=== PATIENT | male | born 1985 | race Caucasian/White ===

== ENCOUNTER 2016-08-23 09:42 | Emergency (ER) | payer OTHER ==
[~2016-08-23] VITALS: Ht 162.6 cm; Wt 75.0 kg
[~2016-08-23 09:42] MED LIST: BACTDS PO; CEPH-443 PO; CEPH500C PO; IBUP800T25 PO
[2016-08-23 09:51] VITALS: Ht 162.6 cm; Wt 75.0 kg
--- NOTE | 2016-08-23 11:12 | RADRPT ---
PROCEDURE: XR Chest. CLINICAL INDICATION: chest pain, dyspnea TECHNIQUE: Single frontal view of the chest was obtained COMPARISON: None FINDINGS: The heart and mediastinum are within normal limits. The lungs are clear. There is no pleural effusion or pneumothorax. RPTAT: AA IMPRESSION: No acute disease. .Ridge Eid MD, MD Date Time Electronically viewed and signed by .Ridge Eid MD, on 08/23/2016 11:12 .S/
--- NOTE | 2016-08-23 11:38 | ERD ---
ER Documentation Chief Complaint Date/Time DATE: 08/23/16 TIME: 11:35 Chief Complaint SOB SINCE THIS MORNING DENIES CP HPI This is a 22-year-old male who presents to the emergency department stating that he woke up with some difficulty breathing. Patient states that he thought he was having a hard time getting air through his nostrils. Patient states he does smoke cigarettes and smoking a lot of cigarettes last night. States he does have a history of anxiety. Patient states that he felt like he couldn't catch his breath. States he feels better now that he is here in the ER. Denies any fevers or chills, cough, calf pain, recent travel ROS All systems reviewed and are negative except as per history of present illness. Medications Home Meds Active Scripts Sulfamethoxazole-Trimethoprim* (Bactrim* DS) 800-160 Mg Tab, 1 TAB PO BID for 7 Days, TAB Prov:FERNANDO RODRÍGUEZ-C 05/01/16 Cephalexin* (Keflex*) 500 Mg Capsule, 500 MG PO QID for 7 Days, CAP Prov:FERNANDO RODRÍGUEZC 05/01/16 Ibuprofen* (Motrin*) 800 Mg Tab, 800 MG PO Q6, #30 TAB Prov:FERNANDO RODRÍGUEZC 05/01/16 Cephalexin* (Cephalexin*) 500 Mg Capsule, 500 MG PO Q12, #14 CAP Prov:JENNY VENTURA NP 08/12/15 Ibuprofen* (Motrin*) 800 Mg Tab, 800 MG PO Q6, #30 TAB Prov:JENNY VENTURA NP 08/12/15 Allergies Allergies: Coded Allergies: No Known Allergy (Unverified , 05/03/16) PMhx/Soc History of Surgery: No Anesthesia Reaction: No Hx Neurological Disorder: No Hx Respiratory Disorders: No Hx Cardiac Disorders: No Hx Psychiatric Problems: No Hx Miscellaneous Medical Probl: No Hx Alcohol Use: Yes (SOCIALLY) Hx Substance Use: Yes (marijuana) Hx Tobacco Use: Yes (6 cigs per day) Physical Exam Vitals Vital Signs Date Time Temp Pulse Resp B/P Pulse Ox O2 Delivery O2 Flow Rate FiO2 08/23/16 09:51 98.2 96 20 134/66 99 Physical Exam Const: No acute distress Head: Atraumatic Eyes: Normal Conjunctiva ENT: Ears TMs normal. Nose no drainage. Throat no erythema no exudate Neck: Full range of motion..~ No meningismus. Resp: Clear to auscultation bilaterally. No Absent breath sounds. No wheezing. Cardio: Regular rate and rhythm, no murmurs Abd: Soft, non tender, non distended. Normal bowel sounds Skin: No petechiae or rashes Ext: No cyanosis, or edema. No calf tenderness bilaterally Neur: Awake and alert Psych: Normal Mood and Affect Results 24 hrs DIAGNOSTIC IMAGING REPORT Patient: SHADE LOPEZ : 1985 Age: 30 Sex: M MR #: [id number] DOS: 08/23/16 0000 Ordering MD: FERNANDO RODRÍGUEZ PA-C Location: [facility] Room/Bed: PROCEDURE: XR Chest. CLINICAL INDICATION: chest pain, dyspnea TECHNIQUE: Single frontal view of the chest was obtained COMPARISON: None FINDINGS: The heart and mediastinum are within normal limits. The lungs are clear. There is no pleural effusion or pneumothorax. RPTAT: AA IMPRESSION: No acute disease. .Ridge Eid MD MD Date Time Electronically viewed and signed by .Ridge Eid MD, MD on 08/23/2016 11: 12 .S/ CC: FERNANDO RODRÍGUEZ PA-C Procedures/[facility] [id number] male who presents to the emergency department today complaining of some shortness of breath. Patient's physical exam is benign but he does smoke cigarettes and therefore did obtain a chest x-ray to rule out pneumothorax. Chest x-ray negative. There is no evidence of pleural effusion or pneumothorax. Low suspicion for pneumonia, PE, abscess. Patient is afebrile and otherwise well appearing. His respirations are 20 and his oxygen saturation is 99%. He is not tachycardic. Patient has had no prolonged travel or prolonged sitting and again I have low suspicion for PE. Condition did indicate that he does have history of anxiety however he denies any chest palpitations. It is not felt that patient requires an EKG at this time. Patient's symptoms at this time may be consistent with anxiety related symptoms versus shortness of breath secondary to uncertain etiology. It is not felt the patient requires any medication for home at this time. I do not feel the patient requires a breathing treatment. He has no wheezing on physical exam. Patient was counseled for 3 minutes on smoking cessation At this time the patient is stable for discharge and outpatient management. Patient should follow up with their PCP in the next 1-2 days. They may return to the emergency department sooner for any persistent or worsening of symptoms. Patient understood and agreed with the plan. Departure Diagnosis: Primary Impression: Shortness of breath Condition: FERNANDO Jimenez PA-C Aug 23, 2016 11:38
== END 2016-08-23 12:33 | disposition home or self-care (01) ==
LOC: FTE 09:42
DX: R06.02 Shortness of breath (principal); F17.210 Nicotine dependence, cigarettes, uncomplicated
CPT/HCPCS: 71010

== ENCOUNTER 2019-02-04 12:37 | Emergency (ER) | payer SELFPAY ==
[~2019-02-04] VITALS: Ht 180.3 cm; Wt 95.0 kg
[~2019-02-04 12:37] MED LIST changes: -IBUP800T25 PO; +IBUP800T48 PO
[2019-02-04 12:40] VITALS: Ht 180.3 cm; Wt 95.0 kg
[2019-02-04] MEDS ORDERED: FENTAnyl 50 MCG/ML VIAL IV ONE (13:00)
[2019-02-04] MEDS ORDERED: ONDANSETRON 4 MG INJ IV STA (13:42)
[2019-02-04] MEDS ORDERED: morphine 10 MG INJ IV ONE (14:00)
[2019-02-04 14:50] VITALS: BP 123/98; PULSE 59; RESP 14
[2019-02-04] MEDS ORDERED: HYDR-4011 PO (14:50)
--- NOTE | 2019-02-04 14:57 | ERD ---
ER Documentation Chief Complaint Chief Complaint PT with R shoulder pain after GLF today. HPI This is a 33-year-old male presents for a ground-level fall complaining of right shoulder pain. Presents with swelling of her shoulders he had no abrasions or lacerations, patient tripped and fell at home, appears to have been tripped by his dog. He denies any numbness or tingling. Denies any other injuries. ROS All systems reviewed and are negative except as per history of present illness. Medications Home Meds Active Scripts Hydrocodone/Acetaminophen ([place] 5-325 Tablet) 1 Each Tablet, 1 TAB PO Q6H PRN for PAIN, #12 TAB Prov:MARIETTA JETER MD 02/04/19 Discontinued Scripts Sulfamethoxazole-Trimethoprim* (Bactrim* DS) 800-160 Mg Tab, 1 TAB PO BID for 7 Days, TAB Prov:FERNANDO RODRÍGUEZ-C 05/01/16 Cephalexin* (Keflex*) 500 Mg Capsule, 500 MG PO QID for 7 Days, CAP Prov:FERNANDO RODRÍGUEZ-C 05/01/16 Ibuprofen* (Motrin*) 800 Mg Tab, 800 MG PO Q6, #30 TAB Prov:FERNANDO RODRÍGUEZ-C 05/01/16 Cephalexin* (Cephalexin*) 500 Mg Capsule, 500 MG PO Q12, #14 CAP Prov:JENNY VENTURA NP 08/12/15 Ibuprofen* (Motrin*) 800 Mg Tab, 800 MG PO Q6, #30 TAB Prov:JENNY VENTURA NP 08/12/15 Allergies Allergies: Coded Allergies: No Known Allergy (Unverified , 02/04/19) PMhx/Soc History of Surgery: No Anesthesia Reaction: No Hx Neurological Disorder: No Hx Respiratory Disorders: No Hx Cardiac Disorders: No Hx Psychiatric Problems: No Hx Miscellaneous Medical Probl: No Hx Alcohol Use: No Hx Substance Use: No Hx Tobacco Use: No Smoking Status: Never smoker Physical Exam Vitals Vital Signs Date Temp Pulse Resp B/P (MAP) Pulse Ox O2 O2 Flow FiO2 Time Delivery Rate 02/04/19 61 18 128/94 100 Room Air 13:15 (105) 02/04/19 98.3 70 14 145/97 97 12:40 (113) Physical Exam Const: Well-appearing, nontoxic Head: Atraumatic Eyes: Normal conjunctiva ENT: Normal external ears, nose and mouth. Neck: Resp: Normal respiratory effort Cardio: Abd: Skin: Back: Ext: Right shoulder: There is swelling and tenderness noted at the proximal humerus, it is held in adduction and flexed position. There is no axillary numbness, distally radial pulses 2+, sensation is intact to light touch. Neur: Awake and alert Psych: Normal mood and affect Results 24 hrs Current Medications Medications Dose Sig/Faustina Start Time Status Last (Trade) Ordered Route PRN Stop Time Admin Dose Reason Admin Fentanyl 100 mcg ONCE ONCE 02/04/19 DC 02/04/19 (Sublimaze) IV 13:00 13:00 02/04/19 13:01 Morphine 6 mg ONCE ONCE 02/04/19 DC 02/04/19 Sulfate IV 14:00 13:50 (morphine) 02/04/19 14:01 Ondansetron 4 mg ONCE STAT 02/04/19 DC 02/04/19 HCl (Zofran IV 13:42 13:50 Inj) 02/04/19 13:45 Procedures/MDM Is a pleasant 33-year-old male who presents for evaluation of right shoulder/up per extremity pain. He had no neurovascular deficits, his x-ray showed an impacted right proximal humerus fracture. The case was discussed with Dr. Church, who recommended urgent Ortho follow-up, and will see the patient in clinic this coming Wednesday. Patient was agreeable to this plan of care, at discharge she was in no distress. Departure Diagnosis: Primary Impression: Humerus fracture Encounter type: initial encounter Humerus Location: proximal Fracture type: closed Fracture morphology: other fracture Fracture alignment: nondisplaced Laterality: right Qualified Codes: S42.294A - Other nondisplaced fracture of upper end of right humerus, initial encounter for closed fracture Condition: Stable Patient Instructions: Fracture, Upper Extremity Referrals: PEGGY CHURCH MD Follow-up on Wednesday, in 48 hours MARIETTA JETER MD Feb 04, 2019 14:56
== END 2019-02-04 15:15 | disposition home or self-care (01) ==
LOC: E/R 12:37
DX: S42.294A Other nondisplaced fracture of upper end of right humerus, initial encounter for closed fracture (principal); W01.0XXA Fall on same level from slipping, tripping and stumbling without subsequent striking against object, initial encounter; Y92.009 Unspecified place in unspecified non-institutional (private) residence as the place of occurrence of the external cause
CPT/HCPCS: 73000; 73030; 96374; 96375; 99284; J2270; J2405; J3010